=== PATIENT | male | born 1935 | race African-American/Black ===

== ENCOUNTER 2019-08-17 16:16 | Emergency (ER) | payer OTHER ==
[~2019-08-17] VITALS: Ht 165.1 cm; Wt 80.7 kg
[~2019-08-17 16:16] MED LIST: ALLO300T2 PO; AML5T PO; ENAL10TA PO; LOVA20TA4 PO; METF-370 PO; METO25TA93 PO; OMEP20TA PO
[2019-08-17 16:54] VITALS: BP 118/67
== END 2019-08-17 17:47 | disposition left against medical advice (07) ==
LOC: ER 16:16
DX: R11.10 Vomiting, unspecified (principal); Z53.21 Procedure and treatment not carried out due to patient leaving prior to being seen by health care provider